=== PATIENT | female | born 1995 | race Caucasian/White ===

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

== ENCOUNTER 2017-04-12 12:45 | Emergency (ER) | payer OTHER ==
[~2017-04-12] VITALS: Ht 160 cm; Wt 62.7 kg
[2017-04-12 13:10] VITALS: TEMP 37.2; Ht 160 cm; Wt 62.7 kg
[2017-04-12] MEDS ORDERED: LEVOTAB3 PO (13:45)
--- NOTE | 2017-04-12 14:15 | EMERGENCY ROOM VISIT NOTE ---
History First contact with patient: 13:28 Chief Complaint: NEEDLE STICK Stated Complaint: STUCK WITH DIRTY NEEDLE AT WORK History of Present Illness The patient is a 21 year old female who presents to the Emergency Room via private vehicle with complaints of "stuck with a dirty needle at work". 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 She states that there was immediate bleeding and it filled her glove. She then immediately cleansed the wound with soap and water. Her tetanus is up- to-date. She presents to us for evaluation of her injury. Review of Systems A complete 6-point Review of Systems was discussed with the patient, with pertinent positives and negatives listed in the History of Present Illness. All remaining Review of Systems questions can be considered negative unless otherwise specified. Past Medical/Surgical History Medical Problems: (1) asthma with exertion (2) History of kidney stones (3) Syncope Family History Diabetes mellitus Kidney disease Kidney stones Seizures Social History Smoking Status: Current Some Day Smoker Alcohol Use: none Drug Use: none Marital Status: single Housing Status: lives with family Occupation Status: student Current/Historical Medications Scheduled Fluoxetine (Prozac), 20 MG PO QPM Levonorgestrel-Ethinyl Estradi (Jolessa), 1 TAB PO DAILY Physical Exam Vital Signs Date Time Temp Pulse Resp B/P (MAP) Pulse Ox O2 Delivery O2 Flow Rate FiO2 04/12/17 14:16 71 16 129/81 98 04/12/17 13:10 37.2 77 16 133/85 96 Room Air Physical Exam VITAL SIGNS - Vital signs and nursing notes were reviewed. Stable. GENERAL - 21-year-old female appearing her stated age who is in no acute distress. Communicates well with provider and answers questions appropriately. SKIN - Without rashes. No lacerations EXTREMITIES - No clubbing or peripheral cyanosis.FROM of L hand. No bleeding. +5 /5 strength noted in UE/LE bilaterally. PSYCH - A&O, and cooperates fully with examiner. Pt is very pleasant and interacts well with examiner. Medical Decision & Procedures Medical Decision Patient was seen and evaluated as above. She presents to us today status post needle stick injury at the [facility]. She was giving an injection when she actually struck herself upon withdrawing the needle from the patient's left arm. I would declare this as a significant needle stick injury. The patient was 89 years old. She cleaned the wound and presented here. I then contacted . Shanikacarrie Cm, employee health. I did draw baseline labs. Benefits versus risk of initiating prophylaxis against HIV was discussed, and the decision was made to refrain at this time given the low risk of the source patient. I was informed by . Shanika Cm that the patient is to follow with occupational health at the building in front of the hospital at [address] as they can help arrange source patient testing. The patient appears stable for outpatient management. She is to go directly to [address]. They were educated upon management him a educated upon worrisome symptoms in which to return, had questions about discharge, and was discharged home in good condition. Ms. Shanika Cm informed me that she would order the testing after I ordered the ED employee health labs. In evaluation treatment this patient following differential diagnoses were entertained: Laceration, needlestick injury, among others. Impression Primary Impression: Needle stick injury Departure Information Dispostion Home / Self-Care Condition GOOD Referrals Laine Santana, C.R.N.P (PCP) Patient Instructions My [facility] Additional Instructions You were seen in the emergency Department for needle stick injury of your hand. I do recommend follow-up with occupational health, [address] at the building outfront of the hospital. Please go there directly upon leaving here. Please keep the hand clean. Please follow-up with occupational health for the results of your testing. Please return with any new/concerning symptoms. Thank you.
[2017-04-12 14:16] VITALS: BP 129/81; PULSE 71; O2SAT 98
== END 2017-04-12 14:16 | disposition home or self-care (01) ==
LOC: C.EDB 12:46 → C.EDD 14:16
DX: S61.432A Puncture wound without foreign body of left hand, initial encounter (principal); W46.1XXA Contact with contaminated hypodermic needle, initial encounter; J45.990 Exercise induced bronchospasm; Z79.3 Long term (current) use of hormonal contraceptives; Z83.3 Family history of diabetes mellitus; Z84.1 Family history of disorders of kidney and ureter; Z82.0 Family history of epilepsy and other diseases of the nervous system

== ENCOUNTER 2019-06-22 14:07 | Inpatient (IN) ==
[2019-06-22] MEDS ORDERED: OXYTOCIN 30 UNITS/500 ML BAG IV PRN ×2 (14:40)
--- NOTE | 2019-06-22 14:58 | History & Physical Report ---
Date of Service June 22, 2019 Assessment & Plan (1) Gestational hypertension: (2) 37 weeks gestation of : admit, iv, labs. reviewed with pt given last wks bp and today rec induction for gest htn. she agrees. will plan pitocin and hart. fhts categ 1. History of Present Illness Chief Complaint: sent from office with elevated bp Primary Care Provider: NO PCP 24yo at 37 22/7wks ega with EDC of 07/11/19 presents to L&D with elevated bp from office. Patient was seen last week by me due to concern for MARRUFO and was having elevated bps measured at her work. Her bp was elevated and sent for evaluation to L&D and bps normalized and was sent home. Followup on wednesday and her bps were normal. Today was planned followup but unfortunately bps elevated again and sent here. Patient noting some visual change. No marrufo, no ruq or epig pain. She notes no worsening swelling but persistent swelling. BPs taken after sitting here for at least 5min and >140/90. Allergies Allergy/AdvReac Type Severity Reaction Status Date / Time No Known Drug Allergies Allergy Unknown Verified 06/22/19 12:58 Home Medications Home Medications Medication Instructions Recorded Confirmed Type calcium carbonate [Tums] 200 mg PO TID 04/17/19 06/22/19 History famotidine 10 mg PO DAILY 04/17/19 06/22/19 History vit no.[id number] 1 tab PO DAILY 06/22/19 06/22/19 History [ Vitamin] Patient History Medical History (Updated 06/22/19 @ 14:57 by Caty Lombardi MD, FACOG) Encounter for annual routine gynecological examination (Inactive) Exertional asthma (Inactive 03/13/12) History of kidney stones (Resolved) Neutropenia (Inactive) Thrombocytopenia (Inactive) UTI (urinary tract infection) (Resolved) Varicella vaccine Surgical History No pertinent past surgical history Social History Preferred Language: Icelandic Communication Ability: Effective Beliefs That Will Affect Care: None marital status: Single marital status details: Geraldinethiago Curriegle (25) [phone] Current Living Situation: Significant Other Current Living Situation Comment: dog current occupational status: employed current occupation: ELEMENTARY SCHOOL TEACHER @ [employer] Other Information That Helps Us Care for You: No Feels Safe at Home: Yes Smoking Status: Never smoker Second Hand Exposure: No ; Hx Alcohol Use: No Hx Substance Use: No Review of Systems + problem reported no abdominal pain and no change in stools no dysuria no headache(s) Physical Exam Constitutional: WD/WN, vitals as above Respiratory: normal respiratory effort, lungs clear to auscultation Cardiovascular: Rate/Rhythm: regular rate and regular rhythm Gastrointestinal (Abdomen): Percussion/Palpation: abdomen soft (gravid); abdomen nontender Musculoskeletal: +1 edema Neurologic: DTRs +2, no clonus Psychiatric: A+Ox3, euthymic affect Genitourinary: OB Exam Abdomen: + estimated weight (7#) Manual OB Exam: + cervical dilation (2), + cervical effacement 50% and + station -2 OB Exam Monitor Tracing: + external FHT monitor used (140 mod variability), + external uterine monitor used (irreg), + category I and + normal FHT variability Results & Data Vital Signs (Past 12 Hours) Vital Signs Pulse BP 06/22/19 14:26 108 H 147/97 H 06/22/19 14:20 114 H 149/94 H 06/22/19 14:14 121 H 156/99 H Coding Level of Care Code None Diagnoses Gestational hypertension O13.9 37 weeks gestation of Z3A.37
[2019-06-22 15:09] LABS: Hematocrit (blood only) 36.3 % (37-47); Hemoglobin 11.8 g/dL (12.0-16.0); Mean Corpuscular Hemoglobin 28.2 pg (25-34); Mean Corpuscular Volume 86.8 fL (80-100); Mean Platelet Volume 10.6 fL (7.4-10.4); Nucleated RBC # (auto) 0.02 K/uL (0-0); Nucleated RBC % (auto) 0.2 %; Platelet Count 259 K/uL (130-400); RDW Standard Deviation 44.5 fL (36.4-46.3); Red Blood Count 4.18 M/uL (4.2-5.4); White Blood Count 11.28 K/uL (4.8-10.8)
[2019-06-22 15:12] LABS: Mean Corpuscular Hgb Conc 32.5 g/dL (32-36)
[2019-06-22 15:25] LABS: Albumin Level 2.6 gm/dl (3.4-5.0); BUN Creatinine Ratio 9.6 (10-20); Calcium 8.7 mg/dl (8.5-10.1); Creatinine Clr Calc Pharmacy 96.2 ml/min; Est GFR (African American) 93.7; Est GFR (Non-African American) 80.9; Potassium 3.9 mmol/L (3.5-5.1)
[2019-06-22 15:27] LABS: INR 0.9 (0.9-1.1); Partial Thromboplastin Ratio 0.9; Partial Thromboplastin Time 25.6 Seconds (21.0-31.0); Prothrombin Time 9.8 Seconds (9.0-12.0)
[2019-06-22 15:28] LABS: Albumin Globulin Ratio 0.6 (0.9-2); Bilirubin,Total 0.2 mg/dl (0.2-1); Globulin 4.7 gm/dl (2.5-4.0); Total Protein 7.3 gm/dl (6.4-8.2)
[2019-06-22] MEDS: LACTATED RINGER'S 1,000 ML IV PRN ×3 (15:29→21:37)
--- NOTE | 2019-06-22 16:14 | Labor Progress Brief Note ---
Date of Service June 22, 2019 Subjective Reason For Note: Other (procedure) plan hart balloon. pt agreeable Assessment & Plan (1) 37 weeks gestation of : (2) Gestational hypertension: (3) Unfavorable cervix in term : hart ripening balloon placed. pt felisa well. c/w pit for planned induction for gest htn. gbs neg. labs reviewed that are avail. Physical Exam Constitutional: WD/WN, vitals as above Genitourinary: OB Exam Monitor Tracing: + external FHT monitor used (140 mod variability), + external uterine monitor used (irrit, pit at 1), + category I and + normal FHT variability PROCEDURE: spec placed. cx grasped on ant lip with ring forcep. hart placed through cx and inflated with 40cc water. spec removed. hart taped to leg. pt felisa well. Results & Data Vital Signs (Past 12 Hours) Vital Signs Temp Pulse Resp BP 06/22/19 15:46 87 135/93 06/22/19 15:05 99.1 F 18 06/22/19 14:26 108 H 147/97 H 06/22/19 14:20 114 H 149/94 H 06/22/19 14:14 121 H 156/99 H Coding Level of Care Code None Diagnoses 37 weeks gestation of Z3A.37 Gestational hypertension O13.9 Unfavorable cervix in term O34.40
[2019-06-22] MEDS ORDERED: ePHEDrine sulfate 50 MG/ML AMP ONE (16:39)
[2019-06-22] MEDS ORDERED: BUPIVACAINE 0.25% 30 ML VIAL ONE (16:39)
[2019-06-22] MEDS ORDERED: fentaNYL citrate 100 MCG/2 ML VIAL ONE (16:40)
[2019-06-22] MEDS ORDERED: fentaNYL 2MCG/ML ROPIV 1.25MG/ML 100 ML BAG EPI ONE (16:40)
--- NOTE | 2019-06-22 17:05 | Anesthesiology Consultation ---
Date of Service June 22, 2019 Assessment & Plan (1) Encounter for pre-operative examination: Chart Review Chart Review: Patient NOT seen in Pre Admission Testing, Acceptable Risk for Labor Epidural and entry level project engineer initiated Consults Requested none ASA ASA2 Proposed Anesthesia Anesthesia Type: Labor Epidural Risk / Benefits Reviewed With: PT / POA / Parent / Guardian, Accepts Plan and Informed Consent Obtained History Height/Weight Height: 5 ft 4 in Weight: 88.904 kg Allergies Allergy/AdvReac Type Severity Reaction Status Date / Time No Known Drug Allergies Allergy Unknown Verified 06/22/19 12:58 Medications Home Medications Medication Instructions Recorded Confirmed Last Taken calcium carbonate [Tums] 200 mg PO TID 04/17/19 06/22/19 06/21/19 20:00 famotidine 10 mg PO DAILY 04/17/19 06/22/19 06/21/19 20:00 vit no.[id number] 1 tab PO DAILY 06/22/19 06/22/19 06/22/19 09:30 [ Vitamin] Active Medications Generic Name Dose Route Start Last Admin Trade Name Freq PRN Reason Stop Dose Admin Lactated Ringer's 1,000 mls @ 125 mls/hr 06/22/19 14:40 06/22/19 16:30 Lr IV 06/24/19 14:39 999 mls/hr .Q8H PRN Infusion L&D Protocol Protocol Oxytocin 30 units in 500 mls @ 1 mls/hr 06/22/19 14:40 06/22/19 15:32 Pitocin IV 06/24/19 14:39 0.06 units/hr .Q24H PRN 1 mls/hr Labor Induction/Augmentation Administration Protocol 0.06 UNITS/HR NPO Date Last Intake of Fluids: 06/22/19 Time Last Intake of Fluids: 17:03 Date Last Intake of Solids: 06/22/19 Time Last Intake of Solids: 11:30 Past Medical History Medical History Encounter for annual routine gynecological examination (Inactive) Exertional asthma (Inactive 03/13/12) History of kidney stones (Resolved) Neutropenia (Inactive) Thrombocytopenia (Inactive) UTI (urinary tract infection) (Resolved) Varicella vaccine Exercise / Class Metabolic Activity II 4-5 Yardwork/Stairs/Walk up hill Past Family History Family History Grandmother (Maternal) Diabetes Hypertension Grandfather (Maternal) Hypertension Mother Depression Other No pertinent family history Past Surgical History Surgical History No pertinent past surgical history Past Anesthesia History No Family Hx of Anesthesia Complications History of PONV No Hx of Motion Sickness Social History Smoking Status: Never smoker Hx Alcohol Use: No Hx Substance Use: No Review of Systems Patient denies history of abnormal bleeding or bleeding disorder. Patient denies active use of anticoagulants other than low dose aspirin. Patient denies numbness, tingling or weakness in lower extremities. Negative for chest pain or shortness of breath. Physical Exam Vital Signs Last Vital Signs Temp 37.3 C 06/22/19 15:05 Pulse 83 06/22/19 16:38 Resp 18 06/22/19 15:05 BP 134/92 06/22/19 16:38 Constitutional not obese (Gravid uterus) ENMT Mouth: no TMJ abnormality and oral opening not small Thyromental Distance: > or= 3.5 Finger Breadths Mallampati Class: I Neck normal visual inspection; neck extension not limited Respiratory normal respiratory effort Auscultation: lungs clear to auscultation bilaterally Cardiovascular Rate/Rhythm: regular rate and regular rhythm Heart Sounds: no murmur Neurologic moves all extremities Motor/Sensory: no sensory deficit Psychiatric Orientation: alert and oriented x 3 Testing Laboratory Results 06/22/19 15:00 06/22/19 15:00 PT 9.8 Seconds (9.0-12.0) 06/22/19 15:00 INR 0.9 (0.9-1.1) 06/22/19 15:00 APTT 25.6 Seconds (21.0-31.0) 06/22/19 15:00
[2019-06-22] MEDS ORDERED: ONDANSETRON INJ 2 MG/ML 2 ML VIAL IV PRN (17:35)
[2019-06-22] MEDS ORDERED: DiphenhydrAMINE HCL 50 MG/ML VIAL IV PRN (17:35)
[2019-06-22] MEDS ORDERED: fentaNYL 2MCG/ML ROPIV 1.25MG/ML 100 ML BAG EPI PRN (17:35)
[2019-06-22] MEDS ORDERED: NALOXONE HCL 0.4 MG/1 ML VIAL/CARP IV PRN (17:35)
[2019-06-22] MEDS ORDERED: NALBUPHINE HCL INJ 10 MG/ML AMP IV PRN (17:35)
[2019-06-22] MEDS ORDERED: ePHEDrine sulfate 50 MG/ML AMP IV PRN (17:35)
[2019-06-22] MEDS ORDERED: NALOXONE HCL 1 MG in SODIUM CHLORIDE 0.9% 1000ML 1,000 ML IV PRN (17:35)
--- NOTE | 2019-06-22 20:22 | Labor Progress Brief Note ---
Date of Service June 22, 2019 Subjective Reason For Note: Routine Evaluation notified by nursing that pit earlier turned off and now back on at 3. pt comfortable. Assessment & Plan (1) 37 weeks gestation of : (2) Gestational hypertension: will see how iupc traces and mvu's. this will help adjust the pitocin, pt agreeable. device placed. fhts categ 2. monitor closely. Physical Exam Constitutional: WD/WN, vitals as above Genitourinary: Manual OB Exam: + cervical dilation 4 cm, + cervical effacement 80%, + station -2 and + amniotic fluid (arom) clear OB Exam Monitor Tracing: + external FHT monitor used (150 mod variability, variable decels), + external uterine monitor used (q2), + category II, + normal FHT variability and + variable decelerations Results & Data Vital Signs (Past 12 Hours) Vital Signs Temp Pulse Resp BP Pulse Ox 06/22/19 20:14 94 H 99 06/22/19 20:09 102 H 100 06/22/19 20:04 89 100 06/22/19 19:59 100 H 100 06/22/19 19:54 91 H 99 06/22/19 19:53 94 H 127/77 06/22/19 19:49 90 99 06/22/19 19:44 83 99 06/22/19 19:39 88 99 06/22/19 19:34 84 100 06/22/19 19:30 18 06/22/19 19:29 80 100 06/22/19 19:24 88 100 06/22/19 19:22 81 119/86 06/22/19 19:19 93 H 100 06/22/19 19:17 98.8 F 18 06/22/19 19:14 96 H 96 06/22/19 19:09 97 H 100 06/22/19 19:04 77 100 06/22/19 18:59 84 100 06/22/19 18:54 85 128/79 99 06/22/19 18:49 84 100 06/22/19 18:44 93 H 100 06/22/19 18:39 82 145/67 H 99 06/22/19 18:34 78 100 06/22/19 18:29 81 130/78 100 06/22/19 18:24 83 100 06/22/19 18:19 78 136/86 100 06/22/19 18:14 81 100 06/22/19 18:09 80 136/88 100 06/22/19 18:04 93 H 100 06/22/19 17:59 84 125/83 100 06/22/19 17:54 79 100 06/22/19 17:49 89 100 06/22/19 17:48 94 H 123/81 06/22/19 17:46 80 121/77 06/22/19 17:45 18 06/22/19 17:44 86 124/79 100 06/22/19 17:42 78 121/78 06/22/19 17:40 86 125/75 88 L 06/22/19 17:39 89 99 06/22/19 17:38 83 128/76 06/22/19 17:36 90 129/74 06/22/19 17:34 80 126/75 100 06/22/19 17:32 87 125/69 06/22/19 17:30 90 132/73 06/22/19 17:29 91 H 100 06/22/19 17:28 101 H 130/71 89 L 06/22/19 17:26 93 H 126/68 06/22/19 17:24 78 126/78 98 06/22/19 17:22 70 118/72 06/22/19 17:19 83 100 06/22/19 17:14 86 100 06/22/19 17:09 96 H 100 06/22/19 16:38 83 134/92 06/22/19 15:46 87 135/93 06/22/19 15:05 99.1 F 18 06/22/19 14:26 108 H 147/97 H 06/22/19 14:20 114 H 149/94 H 06/22/19 14:14 121 H 156/99 H Coding Level of Care Code None Diagnoses 37 weeks gestation of Z3A.37 Gestational hypertension O13.9
[2019-06-22 21:28] LABS: Protein Creatinine Ratio Urine 0.1 (0-0.2); Total Protein Urine Random 17.5 mg/dl (0-11.9)
--- NOTE | 2019-06-22 22:49 | Labor Progress Brief Note ---
Date of Service June 22, 2019 Subjective Reason For Note: Other (strip review) Assessment & Plan (1) 37 weeks gestation of : (2) Gestational hypertension: now with pitocin off fhts are improved, categ 1. mvu's intermittently adequate. will watch mvu's to see if need to add pitocin but also recent arom, so can see how ctx pattern improves from here. this is now a spont ctx pattern. Physical Exam Genitourinary: OB Exam Monitor Tracing: + external FHT monitor used (140 mod variability ), + intra-uterine pressure catheter used (q1-3 min ctx, mvus are intermittently adequate), + category I and + normal FHT variability Results & Data Vital Signs (Past 12 Hours) Vital Signs Temp Pulse Resp BP Pulse Ox 06/22/19 22:40 80 117/73 06/22/19 22:39 81 98 06/22/19 22:34 80 98 06/22/19 22:29 82 98 06/22/19 22:26 81 117/70 06/22/19 22:24 84 98 06/22/19 22:19 95 H 100 06/22/19 22:14 83 100 06/22/19 22:10 83 119/74 06/22/19 22:09 85 100 06/22/19 22:04 88 100 06/22/19 22:00 18 06/22/19 21:59 90 99 06/22/19 21:55 86 118/72 06/22/19 21:54 99 06/22/19 21:49 93 H 100 06/22/19 21:44 93 H 99 06/22/19 21:41 97 H 130/62 06/22/19 21:39 97 H 99 06/22/19 21:34 94 H 98 06/22/19 21:30 18 06/22/19 21:29 96 H 99 06/22/19 21:26 95 H 139/89 06/22/19 21:24 93 H 98 06/22/19 21:19 95 H 100 06/22/19 21:14 97 H 100 06/22/19 21:11 91 H 131/86 06/22/19 21:09 110 H 99 06/22/19 21:04 103 H 100 06/22/19 21:00 18 06/22/19 20:59 93 H 100 06/22/19 20:56 104 H 130/87 06/22/19 20:54 101 H 100 06/22/19 20:49 102 H 100 06/22/19 20:44 99 H 99 06/22/19 20:40 81 117/62 06/22/19 20:39 81 100 06/22/19 20:34 89 100 06/22/19 20:30 18 06/22/19 20:29 98 H 100 06/22/19 20:25 82 103/55 L 06/22/19 20:24 87 99 06/22/19 20:23 95 H 86 L 06/22/19 20:19 93 H 99 06/22/19 20:15 98.8 F 18 06/22/19 20:14 94 H 99 06/22/19 20:09 102 H 100 06/22/19 20:04 89 100 06/22/19 20:00 18 06/22/19 19:59 100 H 100 06/22/19 19:54 91 H 99 06/22/19 19:53 94 H 127/77 06/22/19 19:49 90 99 06/22/19 19:44 83 99 06/22/19 19:39 88 99 06/22/19 19:34 84 100 06/22/19 19:30 18 06/22/19 19:29 80 100 06/22/19 19:24 88 100 06/22/19 19:22 81 119/86 06/22/19 19:19 93 H 100 06/22/19 19:17 98.8 F 18 06/22/19 19:14 96 H 96 06/22/19 19:09 97 H 100 06/22/19 19:04 77 100 06/22/19 18:59 84 100 06/22/19 18:54 85 128/79 99 06/22/19 18:49 84 100 06/22/19 18:44 93 H 100 06/22/19 18:39 82 145/67 H 99 06/22/19 18:34 78 100 06/22/19 18:29 81 130/78 100 06/22/19 18:24 83 100 06/22/19 18:19 78 136/86 100 06/22/19 18:14 81 100 06/22/19 18:09 80 136/88 100 06/22/19 18:04 93 H 100 06/22/19 17:59 84 125/83 100 06/22/19 17:54 79 100 06/22/19 17:49 89 100 06/22/19 17:48 94 H 123/81 06/22/19 17:46 80 121/77 06/22/19 17:45 18 06/22/19 17:44 86 124/79 100 06/22/19 17:42 78 121/78 06/22/19 17:40 86 125/75 88 L 06/22/19 17:39 89 99 06/22/19 17:38 83 128/76 06/22/19 17:36 90 129/74 06/22/19 17:34 80 126/75 100 06/22/19 17:32 87 125/69 06/22/19 17:30 90 132/73 06/22/19 17:29 91 H 100 06/22/19 17:28 101 H 130/71 89 L 06/22/19 17:26 93 H 126/68 06/22/19 17:24 78 126/78 98 06/22/19 17:22 70 118/72 06/22/19 17:19 83 100 06/22/19 17:14 86 100 06/22/19 17:09 96 H 100 06/22/19 16:38 83 134/92 06/22/19 15:46 87 135/93 06/22/19 15:05 99.1 F 18 06/22/19 14:26 108 H 147/97 H 06/22/19 14:20 114 H 149/94 H 06/22/19 14:14 121 H 156/99 H Coding Level of Care Code None Diagnoses 37 weeks gestation of Z3A.37 Gestational hypertension O13.9
[2019-06-23] MEDS ORDERED: Nursing to Pharmacy Communication ONE (03:26)
--- NOTE | 2019-06-23 03:47 | Labor Progress Brief Note ---
Date of Service June 23, 2019 Subjective pt with rectal pressure Assessment & Plan (1) 37 weeks gestation of : (2) Gestational hypertension: will see if pt can become more comfortable as still with anterior lip, anticip 2nd stage soon. Physical Exam Constitutional: WD/WN, vitals as above Genitourinary: Manual OB Exam: + cervical dilation (ant lip), + cervical effacement 100% and + station + 3 OB Exam Monitor Tracing: + external FHT monitor used (160 mod variability, reactive), + intra-uterine pressure catheter used (q2), + category I and + normal FHT variability Results & Data Vital Signs (Past 12 Hours) Vital Signs Temp Pulse Resp BP Pulse Ox 06/23/19 03:44 99 H 99 06/23/19 03:42 138/97 06/23/19 03:39 102 H 100 06/23/19 03:34 129 H 99 06/23/19 03:29 82 98 06/23/19 03:25 85 143/89 H 06/23/19 03:24 91 H 99 06/23/19 03:19 100 H 100 06/23/19 03:14 110 H 100 06/23/19 03:09 120 H 95 06/23/19 03:04 87 97 06/23/19 02:59 83 97 06/23/19 02:55 83 144/76 H 06/23/19 02:54 94 H 100 06/23/19 02:49 81 99 06/23/19 02:44 98 H 100 06/23/19 02:42 93 H 154/63 H 06/23/19 02:39 109 H 100 06/23/19 02:34 109 H 99 06/23/19 02:30 98.1 F 18 06/23/19 02:29 81 98 06/23/19 02:26 81 140/75 06/23/19 02:24 81 100 06/23/19 02:19 79 100 06/23/19 02:14 101 H 100 06/23/19 02:09 85 99 06/23/19 02:04 91 H 100 06/23/19 02:00 16 06/23/19 01:59 101 H 100 06/23/19 01:56 87 118/72 06/23/19 01:54 84 100 06/23/19 01:49 85 99 06/23/19 01:44 95 H 100 06/23/19 01:41 85 129/75 06/23/19 01:39 91 H 100 06/23/19 01:34 85 100 06/23/19 01:30 18 06/23/19 01:29 89 100 06/23/19 01:26 93 H 124/80 06/23/19 01:24 82 100 06/23/19 01:19 112 H 99 06/23/19 01:14 99 H 99 06/23/19 01:10 92 H 139/69 06/23/19 01:09 94 H 100 06/23/19 01:04 89 100 06/23/19 01:00 18 06/23/19 00:59 96 H 100 06/23/19 00:56 100 H 131/78 06/23/19 00:54 101 H 100 06/23/19 00:49 101 H 99 06/23/19 00:44 115 H 100 06/23/19 00:39 121 H 96 06/23/19 00:34 119 H 100 06/23/19 00:30 97.5 F L 18 06/23/19 00:29 108 H 100 06/23/19 00:26 85 110/56 L 06/23/19 00:24 95 H 100 06/23/19 00:19 112 H 100 06/23/19 00:14 111 H 100 06/23/19 00:09 102 H 100 06/23/19 00:04 82 98 06/23/19 00:00 18 06/22/19 23:59 86 98 06/22/19 23:56 80 120/69 06/22/19 23:54 90 100 06/22/19 23:49 80 98 06/22/19 23:44 78 99 06/22/19 23:40 80 123/73 06/22/19 23:39 79 98 06/22/19 23:34 75 98 06/22/19 23:30 18 06/22/19 23:29 77 98 06/22/19 23:26 74 120/68 06/22/19 23:24 77 99 06/22/19 23:19 85 100 06/22/19 23:14 87 99 06/22/19 23:11 91 H 127/66 06/22/19 23:09 90 98 06/22/19 23:04 79 98 04/09/20 23:00 18 06/22/19 22:59 87 99 06/22/19 22:56 85 135/78 06/22/19 22:54 92 H 98 06/22/19 22:49 91 H 100 06/22/19 22:44 107 H 100 06/22/19 22:40 80 117/73 06/22/19 22:39 81 98 06/22/19 22:34 80 98 06/22/19 22:30 99.0 F 18 06/22/19 22:29 82 98 06/22/19 22:26 81 117/70 06/22/19 22:24 84 98 06/22/19 22:19 95 H 100 06/22/19 22:14 83 100 06/22/19 22:10 83 119/74 06/22/19 22:09 85 100 06/22/19 22:04 88 100 06/22/19 22:00 18 06/22/19 21:59 90 99 06/22/19 21:55 86 118/72 06/22/19 21:54 99 06/22/19 21:49 93 H 100 06/22/19 21:44 93 H 99 06/22/19 21:41 97 H 130/62 06/22/19 21:39 97 H 99 06/22/19 21:34 94 H 98 06/22/19 21:30 18 06/22/19 21:29 96 H 99 06/22/19 21:26 95 H 139/89 06/22/19 21:24 93 H 98 06/22/19 21:19 95 H 100 06/22/19 21:14 97 H 100 06/22/19 21:11 91 H 131/86 06/22/19 21:09 110 H 99 06/22/19 21:04 103 H 100 06/22/19 21:00 18 06/22/19 20:59 93 H 100 06/22/19 20:56 104 H 130/87 06/22/19 20:54 101 H 100 06/22/19 20:49 102 H 100 06/22/19 20:44 99 H 99 06/22/19 20:40 81 117/62 06/22/19 20:39 81 100 06/22/19 20:34 89 100 06/22/19 20:30 18 06/22/19 20:29 98 H 100 06/22/19 20:25 82 103/55 L 06/22/19 20:24 87 99 06/22/19 20:23 95 H 86 L 06/22/19 20:19 93 H 99 06/22/19 20:15 98.8 F 18 06/22/19 20:14 94 H 99 06/22/19 20:09 102 H 100 06/22/19 20:04 89 100 06/22/19 20:00 18 06/22/19 19:59 100 H 100 06/22/19 19:54 91 H 99 06/22/19 19:53 94 H 127/77 06/22/19 19:49 90 99 06/22/19 19:44 83 99 06/22/19 19:39 88 99 06/22/19 19:34 84 100 06/22/19 19:30 18 06/22/19 19:29 80 100 06/22/19 19:24 88 100 06/22/19 19:22 81 119/86 06/22/19 19:19 93 H 100 06/22/19 19:17 98.8 F 18 06/22/19 19:14 96 H 96 06/22/19 19:09 97 H 100 06/22/19 19:04 77 100 06/22/19 18:59 84 100 06/22/19 18:54 85 128/79 99 06/22/19 18:49 84 100 06/22/19 18:44 93 H 100 06/22/19 18:39 82 145/67 H 99 06/22/19 18:34 78 100 06/22/19 18:29 81 130/78 100 06/22/19 18:24 83 100 06/22/19 18:19 78 136/86 100 06/22/19 18:14 81 100 06/22/19 18:09 80 136/88 100 06/22/19 18:04 93 H 100 06/22/19 17:59 84 125/83 100 06/22/19 17:54 79 100 06/22/19 17:49 89 100 06/22/19 17:48 94 H 123/81 06/22/19 17:46 80 121/77 06/22/19 17:45 18 06/22/19 17:44 86 124/79 100 04/09/20 17:42 78 121/78 06/22/19 17:40 86 125/75 88 L 06/22/19 17:39 89 99 06/22/19 17:38 83 128/76 06/22/19 17:36 90 129/74 06/22/19 17:34 80 126/75 100 06/22/19 17:32 87 125/69 06/22/19 17:30 90 132/73 06/22/19 17:29 91 H 100 06/22/19 17:28 101 H 130/71 89 L 06/22/19 17:26 93 H 126/68 06/22/19 17:24 78 126/78 98 06/22/19 17:22 70 118/72 06/22/19 17:19 83 100 06/22/19 17:14 86 100 06/22/19 17:09 96 H 100 06/22/19 16:38 83 134/92 06/22/19 15:46 87 135/93 Coding Level of Care Code None Diagnoses 37 weeks gestation of Z3A.37 Gestational hypertension O13.9
[2019-06-23] MEDS ORDERED: BENZOCAINE 20% AER SPR 82.5 GM CAN EXT PRN (05:40)
[2019-06-23] MEDS ORDERED: OXYCODONE/ACETAMINOPHEN 5mg/325mg TAB PO PRN (05:40)
[2019-06-23] MEDS ORDERED: DIPHTHERIA/TETANUS/PERTUSSIS 0.5 ML SYR/VIAL IM ONE (05:40)
[2019-06-23] MEDS ORDERED: HYDROCORTISONE ACETATE 25 MG SUPP PR PRN (05:40)
[2019-06-23] MEDS ORDERED: OXYTOCIN 30 UNITS/500 ML BAG IV PRN (05:40)
[2019-06-23] MEDS ORDERED: SUPERCREAM 0.870% 15 GM JAR EXT PRN (05:40)
[2019-06-23] MEDS ORDERED: ACETAMINOPHEN 325 MG TAB PO PRN (05:40)
--- NOTE | 2019-06-23 05:43 | Delivery Summary ---
Vaginal Delivery Summary Date of Service June 23, 2019 The patient dilated to complete and pushed to deliver a viable male infant Apgars 6 and 8 via over small 2nd degree perineal laceration. Mouth and nose bulb suctioned at perineum. Shoulders and body delivered with ease. was vigorous and crying at . Cord clamped at 30 seconds of life and to maternal abdomen where the cord was then doubly clamped and cut. Placenta delivered spontaneously and intact, three-vessel cord. Hemostasis achieved with dilute pitocin and uterine massage and drainage of the bladder for approximately 100 cc under sterile conditions. Cervix and sulci intact. EBL 300 cc. Mother and baby stable recovery. [facility] Vaginal Delivery Charge Vaginal Delivery Codes: 27964 global code for the antepartum, delivery, and post-
[2019-06-23] MEDS ORDERED: OXYTOCIN 20 UNITS in LACTATED RINGER'S 1,000 ML IV SCH (05:45)
--- NOTE | 2019-06-23 06:57 | Anesthesia Procedure Note ---
Date of Service June 23, 2019 Anesthesia Post Epidural Note Vital Signs Vital Signs: Temp Pulse Resp BP Pulse Ox 37.9 C H 117 H 18 131/70 97 06/23/19 05:15 06/23/19 06:46 06/23/19 05:15 06/23/19 06:46 06/23/19 05:24 Notes Mental Status: alert / awake / arousable and participated in evaluation Nausea / Vomiting: adequately controlled Pain: adequately controlled Airway Patency, RR, SpO2: stable & adequate BP & HR: stable & adequate Hydration State: stable & adequate Neuraxial Anesthesia: was administered and sensory block is resolving Anesthetic Complications: no major complications apparent and Pt Satisfied with anesthetic care Epidural: Removed without complications and With tip intact Notes: Epidural site clean, dry and intact. No signs of edema, erythema or bruising at insertion site. Pt instructed to request anesthesia if she has residual lower extremity numbness or if she develops lower extremity pain or weakness, back pain or headache.
[2019-06-23] MEDS: IBUPROFEN 600 MG TAB PO PRN ×3 (07:09→23:25)
[2019-06-23] MEDS: DOCUSATE SODIUM 100 MG CAP PO SCH ×2 (08:24→20:19)
[2019-06-23] MEDS: PRENATAL VITAMIN 1 TAB PO SCH (08:24)
[2019-06-23] MEDS: FAMOTIDINE 10 MG TABLET PO SCH (08:24)
[2019-06-23] MEDS: FLUOXETINE HCL 10 MG CAP PO SCH (11:53)
[2019-06-23] MEDS: buPROPion HCl 75 MG TABLET PO SCH ×2 (11:53→20:19)
[2019-06-24] MEDS: IBUPROFEN 600 MG TAB PO PRN (08:14)
[2019-06-24] MEDS: PRENATAL VITAMIN 1 TAB PO SCH (08:14)
[2019-06-24] MEDS: DOCUSATE SODIUM 100 MG CAP PO SCH (08:14)
--- NOTE | 2019-06-24 08:20 | Obstetrical Progress Note ---
Date of Service June 24, 2019 Assessment & Plan (1) Supervision of normal intrauterine in primigravida: PPD#1 doing well, no concerns. Continue routine care. Subjective Ambulation: ambulating normally Voiding: no voiding problems Diet Tolerance:: regular diet Lochia:: Moderate Feeding Type:: bottle feeding PPD#1 doing well Review of Systems All systems reviewed & are unremarkable except as noted in HPI & below Physical Exam Constitutional WD/WN, vitals as above no acute distress Respiratory normal respiratory effort Cardiovascular Rate/Rhythm: regular rate and regular rhythm Gastrointestinal (Abdomen) Inspection/Auscultation: abdomen normal to inspection; abdomen not distended Percussion/Palpation: abdomen soft Genitourinary OB Exam Abdomen: + fundal height Fundus: + firm; not tender Results & Data Vital Signs (Past 12 Hours) Vital Signs Temp Pulse Resp BP Pulse Ox 06/24/19 04:15 36.9 C 88 14 119/74 98 06/23/19 23:15 36.5 C 80 16 134/81 99
[2019-06-24] MEDS: FLUOXETINE HCL 10 MG CAP PO SCH (08:54)
[2019-06-24] MEDS: FAMOTIDINE 10 MG TABLET PO SCH (08:54)
[2019-06-24] MEDS ORDERED: buPROPion HCl 75 MG TABLET PO SCH (09:00)
--- NOTE | 2019-06-28 09:03 | Coding Query ---
CODING QUERY To promote full compliance with coding requirements relating to patient care, provider participation is requested in all cases of ribber uncertainty. Please assist us with the question(s) below: Coding Question(s): It is noted that the patient had a small 2nd degree perineal laceration during delivery. Please indicate/describe below if any repairs were made to this. Physician's Response(s): repair was made, vag delivery note addended. Thank you Chanda Cunha Principal Diagnosis: "that condition established after study, to be chiefly responsible for occasioning the admission of the patient to the hospital for care." Co-Existing Principal Diagnosis: "when two or more diagnoses equally meet the criteria for principal diagnosis as determined by the circumstances of admission, diagnostic work up, and/or therapy provided, and the Alphabetic Index, Tabular List, or another coding guideline does not provide sequencing direction, any one of the diagnoses may be sequenced first." "When the physician has documented what appears to be a current diagnosis in the body of the record, but has not included the diagnosis in the final diagnostic statement, the physician should be asked whether the diagnosis should be added." (Source Coding [facility] 2 QTR90. p3-4) YUE
== END 2019-06-24 12:40 | disposition home or self-care (01) | DRG 807 ==
LOC: OPB 14:07 → 4S1 14:10 → 4S2 06-23 08:05

== ENCOUNTER 2022-11-07 22:11 | Inpatient (IN) ==
[2022-11-07] MEDS ORDERED: ACETAMINOPHEN 325 MG TAB PO PRN (22:37)
[2022-11-07 23:04] LABS: Basophils # (auto) 0.05 K/uL (0.00-0.20); Basophils % (auto) 0.7 %; Eosinophils # (auto) 0.03 K/uL (0.00-0.50); Eosinophils % (auto) 0.4 %; Hematocrit (blood only) 30.2 % (37.0-47.0); Hemoglobin 9.7 g/dl (12.0-16.0); Immature Granulocytes # (auto) 0.06 K/uL (0.01-0.20); Immature Granulocytes % (auto) 0.8 %; Lymphocytes # (auto) 2.72 K/uL (1.20-3.40); Lymphocytes % (auto) 35.4 %; Mean Corpuscular Hemoglobin 25.9 pg (25.0-34.0); Mean Corpuscular Hgb Conc 32.1 g/dL (32.0-36.0); Mean Corpuscular Volume 80.7 fL (80.0-100.0); Mean Platelet Volume 11.5 fL (9.4-12.4); Monocytes # (auto) 0.65 K/uL (0.11-0.59); Monocytes % (auto) 8.5 %; Neutrophils # (auto) 4.18 K/uL (1.40-6.50); Neutrophils % (auto) 54.2 %; Nucleated RBC # (auto) 0.02 K/uL (0.00-0.12); Nucleated RBC % (auto) 0.3 %; Platelet Count 239 K/uL (130-400); RDW Coefficient of Variation 14.7 % (11.5-14.5); RDW Standard Deviation 43.1 fL (36.4-46.3); Red Blood Count 3.74 M/uL (4.20-5.40); White Blood Count 7.69 K/ul (4.8-10.8)
[2022-11-07 23:23] LABS: Albumin Level 3.7 gm/dl (3.4-5.0); BUN Creatinine Ratio 14.6 (10-20); Bilirubin,Total 0.3 mg/dl (0.2-1.0); Calcium 9.4 mg/dl (8.6-10.3); Creatinine Clr Calc Pharmacy 86.9 ml/min; Est GFR (African American) 87.5 ml/min; Est GFR (Non-African American) 75.5 ml/min; Globulin 3.7 gm/dl (2.5-4.0); Potassium 3.9 mmol/L (3.5-5.1); Total Protein 7.4 gm/dl (6.0-8.3)
[2022-11-07 23:52] LABS: Total Protein Urine Random 29.1 mg/dl (0-11.9)
[2022-11-07 23:57] LABS: Creatinine Urine Random 262.9 mg/dl; Protein Creatinine Ratio Urine 0.1 (0-0.2)
[2022-11-08] MEDS ORDERED: OXYTOCIN 30 UNITS/500 ML BAG IV PRN ×3 (02:42→11:43)
[2022-11-08] MEDS ORDERED: LIDOCAINE 1% LOCAL 20 ML VIAL INFIL PRN (02:42)
[2022-11-08] MEDS: LACTATED RINGER'S 1,000 ML IV PRN ×2 (02:57→08:01)
[2022-11-08] MEDS ORDERED: BUTORPHANOL TARTRATE 1 MG/ML VIAL IV PRN (03:30)
[2022-11-08] MEDS ORDERED: ACETAMINOPHEN 325 MG TAB PO PRN ×2 (03:30→11:43)
--- NOTE | 2022-11-08 03:30 | History & Physical Report ---
Date of Service November 08, 2022 Assessment & Plan (1) 37 weeks gestation of : (2) Gestational hypertension: Plan admit, iv, will plan repeat labs about 8am. cervical ripening balloon placed and start pitocin. if persistent elevated severe range bps, will need trt and mag. pt made aware. tylenol additional prn order placed. stadol/epidural when desires. Admission and Anticipated Discharge Date Admission Date: November 08, 2022 History of Present Illness Chief Complaint: gestational hypertension Primary Care Provider: Sheri Sung PA-C 27yo at 37+wks [place] presents to L&D with light and visual floaters in background of history of gestational htn with prior , having mild ctx. She had elevated bps, taken with correct parameters x 2, by 4hr. She met criteria for gestational htn. She did have tylenol during her evaluation and it has helped some--now left sided light only, not severe. She denies visual changes currently that are changed for her usual vision. Denies rom, vb. +FM. PNC c/b 1. prior c/b gest htn PNL rh pos, ri, gbs neg OBH: svdx 1, induced for gest htn GYNH: nl paps, no stds Allergies Allergy/AdvReac Type Severity Reaction Status Date / Time No Known Drug Allergies Allergy Unknown Verified 11/06/22 11:34 Home Medications Medication Instructions Recorded Confirmed Type calcium carbonate 200 mg calcium 200 mg PO TID 04/17/19 11/07/22 History (500 mg) chewable tablet (Tums) prenat.vits,faye,[id number] 1 tab PO DAILY 04/06/22 11/07/22 History Patient History Medical History (Updated 11/08/22 @ 03:29 by Caty Lombardi MD, FACOG) Depression with anxiety Encounter for annual routine gynecological examination Exertional asthma (03/13/12) Gestational hypertension History of kidney stones Neutropenia Thrombocytopenia UTI (urinary tract infection) Varicella vaccine Surgical History No pertinent past surgical history Family History Grandmother (Maternal) Diabetes Hypertension Grandfather (Maternal) Hypertension Mother Depression Endometriosis Denies family history of Ovarian cancer Breast cancer Colorectal cancer Social History Smoking Status: Never smoker Second Hand Exposure: No; Do You Dip or Chew Tobacco: No; Hx Alcohol Use: No Hx Substance Use: No Preferred Language: Tajik Communication Ability: Effective 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 Beliefs That Will Affect Care: None marital status: marital status details: Abiodun Isaacs (29) [phone] Current Living Situation: Spouse Current Living Situation Comment: lives with spouse, son, dogs current occupational status: unemployed current occupation: homemaker Feels Safe at Home: Yes Safety Concerns: Feels Safe At This Time Assistive Devices: Contacts and Glasses Review of Systems as per Subjective / HPI Physical Exam Constitutional: WD/WN, vitals as above Respiratory: normal respiratory effort, lungs clear to auscultation Cardiovascular: Rate/Rhythm: regular rate and regular rhythm Gastrointestinal (Abdomen): soft gravid nt efwe 7# Musculoskeletal: no edema nontender calves Neurologic: DTRs +2, no clonus Psychiatric: A+Ox3, euthymic affect Genitourinary: Manual OB Exam: + cervical dilation (nursing exam /-2 post, med) 1 cm OB Exam Monitor Tracing: + external FHT monitor used, + external uterine monitor used (irreg), + category I and + normal FHT variability PROCEDURE: sse cx visualized, grasped on ant lip with ring forcep, hart through os and balloon inflated with 40cc sterile water. Spec removed, hart taped to leg. pt felisa well. Results & Data Vital Signs (Past 12 Hours) Vital Signs Temp Pulse Resp BP 11/07/22 23:05 20 11/08/22 03:15 69 125/89 11/08/22 03:00 98.4 F 82 16 127/83 11/08/22 02:41 82 158/98 H 11/08/22 02:37 90 159/111 H 11/08/22 00:07 78 140/92 11/07/22 23:52 100 H 145/95 H 11/07/22 23:41 83 135/81 11/07/22 23:31 81 132/100 11/07/22 23:21 111 H 124/94 11/07/22 23:12 93 H 137/89 08/26/23 22:50 115 H 128/77 11/07/22 22:36 106 H 145/88 H Coding Level of Care Code None Diagnoses 37 weeks gestation of Z3A.37 Gestational hypertension O13.9 CPT Codes Misx Procedure Codes - 13418 Placement of cervical dilator: 65428 Placement of cervical dilator ([id number])
[2022-11-08] MEDS ORDERED: ONDANSETRON INJ 2 MG/ML 2 ML VIAL IV STA (03:32)
[2022-11-08 07:00] LABS: Albumin Level 3.3 gm/dl (3.4-5.0); BUN Creatinine Ratio 15.1 (10-20); Bilirubin Direct 0.1 mg/dl (0-0.2); Bilirubin,Total 0.4 mg/dl (0.2-1.0); Calcium 8.8 mg/dl (8.6-10.3); Creatinine Clr Calc Pharmacy 96.3 ml/min; Est GFR (Non-African American) 85.4 ml/min; Globulin 3.2 gm/dl (2.5-4.0); Potassium 3.9 mmol/L (3.5-5.1); Total Protein 6.5 gm/dl (6.0-8.3)
[2022-11-08] MEDS ORDERED: BUPIVACAINE 0.25% PF 30 ML VIAL ONE (07:12)
[2022-11-08] MEDS ORDERED: LIDOCAINE 2%/EPINEPHRINE 1:200,000 20 ML PF ONE (07:12)
[2022-11-08] MEDS ORDERED: fentaNYL citrate PF 100 MCG/2 ML VIAL ONE (07:12)
[2022-11-08] MEDS ORDERED: SODIUM CHLORIDE 0.9% PF INJ 10 ML VIAL ONE (07:12)
[2022-11-08] MEDS ORDERED: ePHEDrine sulfate 50 MG/ML AMP ONE (07:12)
[2022-11-08] MEDS ORDERED: fentaNYL 2MCG/ML ROPIVACAINE 1.25MG/ML 100 ML BAG EPI ONE (07:13)
[2022-11-08] MEDS ORDERED: LIDOCAINE 2%/EPINEPHRINE 1:200,000 20 ML PF EPI STA (07:41)
[2022-11-08] MEDS ORDERED: BUPIVACAINE 0.25% PF 30 ML VIAL EPI PRN (07:41)
[2022-11-08] MEDS ORDERED: SODIUM CHLORIDE 0.9% PF INJ 10 ML VIAL EPI PRN (07:41)
[2022-11-08] MEDS ORDERED: NALOXONE HCL 0.4 MG/1 ML VIAL/CARP IV PRN (07:41)
[2022-11-08] MEDS ORDERED: ePHEDrine sulfate 50 MG/ML AMP IV PRN (07:41)
[2022-11-08] MEDS ORDERED: BUPIVACAINE 0.25% PF 30 ML VIAL EPI STA (07:41)
[2022-11-08] MEDS ORDERED: NALOXONE HCL 1 MG in SODIUM CHLORIDE 0.9% 1000ML 1,000 ML IV PRN (07:41)
[2022-11-08] MEDS ORDERED: LIDOCAINE 2% MPF LOCAL 5 ML VIAL EPI PRN (07:41)
[2022-11-08] MEDS ORDERED: SODIUM CHLORIDE 0.9% PF INJ 10 ML VIAL EPI STA (07:41)
[2022-11-08] MEDS ORDERED: fentaNYL citrate PF 100 MCG/2 ML VIAL EPI PRN (07:41)
[2022-11-08] MEDS ORDERED: diphenhydrAMINE 50 MG/ML VIAL IV PRN (07:41)
[2022-11-08] MEDS ORDERED: fentaNYL 2MCG/ML ROPIVACAINE 1.25MG/ML 100 ML BAG EPI PRN (07:41)
[2022-11-08] MEDS ORDERED: fentaNYL citrate PF 100 MCG/2 ML VIAL EPI STA (07:41)
[2022-11-08] MEDS ORDERED: ROPIVACAINE 0.5% PF 5 MG/ML 20 ML VIAL EPI PRN (07:41)
[2022-11-08] MEDS ORDERED: NALBUPHINE HCL INJ 10 MG/ML AMP IV PRN (07:41)
--- NOTE | 2022-11-08 07:44 | Anesthesiology Consultation ---
Date of Service November 08, 2022 History Height/Weight Height: 5 ft 5 in Weight: 79.379 kg Allergies Allergy/AdvReac Type Severity Reaction Status Date / Time No Known Drug Allergies Allergy Unknown Verified 11/06/22 11:34 Medications Home Medications Medication Instructions Recorded Confirmed Last Taken calcium carbonate 200 mg calcium 200 mg PO TID 04/17/19 11/07/22 06/21/19 20:00 (500 mg) chewable tablet (Tums) prenat.vits,faye,[id number] 1 tab PO DAILY 04/06/22 11/07/22 Unknown Active Medications Generic Name Dose Route Start Last Admin Trade Name Freq PRN Reason Stop Dose Admin Butorphanol Tartrate 1 mg 11/08/22 03:30 11/08/22 04:56 Butorphanol Tartrate 1 Mg/Ml Vial IV 12/08/22 03:29 1 mg ONCE PRN Administration Pain Lactated Ringer's 1,000 mls @ 125 mls/hr 11/08/22 02:42 11/08/22 07:00 Lr IV 11/10/22 02:41 999 mls/hr .Q8H PRN Infusion L&D Protocol Protocol Oxytocin 30 units in 500 mls @ 9 mls/hr 11/08/22 03:23 11/08/22 07:00 Pitocin IV 11/10/22 03:22 0.54 units/hr .Q24H PRN 9 mls/hr Labor Induction/Augmentation Titration Protocol 0.54 UNITS/HR Past Medical History Medical History (Updated 11/08/22 @ 03:29 by Caty Lombardi MD, FACOG) Depression with anxiety Encounter for annual routine gynecological examination Exertional asthma (03/13/12) Gestational hypertension History of kidney stones Neutropenia Thrombocytopenia UTI (urinary tract infection) Varicella vaccine Past Family History Family History Grandmother (Maternal) Diabetes Hypertension Grandfather (Maternal) Hypertension Mother Depression Endometriosis Denies family history of Ovarian cancer Breast cancer Colorectal cancer Past Surgical History Surgical History No pertinent past surgical history Social History Smoking Status: Never smoker Do You Dip or Chew Tobacco: No Hx Alcohol Use: No Hx Substance Use: No Review of Systems Constitutional: as per Subjective / HPI Physical Exam Vital Signs Last Vital Signs Temp 36.5 C 11/08/22 07:01 Pulse 63 11/08/22 07:38 Resp 18 11/08/22 07:01 BP 137/86 11/08/22 07:30 Pulse Ox 98 11/08/22 07:38 Constitutional WD/WN, vitals as above Respiratory normal respiratory effort, lungs clear to auscultation Cardiovascular Rate/Rhythm: regular rate and regular rhythm Psychiatric A+Ox3, euthymic affect Genitourinary Manual OB Exam: + cervical dilation (nursing exam /-2 post, med) + 1 cm OB Exam Monitor Tracing: + external FHT monitor used, + external uterine monitor used (irreg), + category I and + normal FHT variability Testing Laboratory Results 11/07/22 22:46 11/08/22 06:16
--- NOTE | 2022-11-08 08:45 | Labor Progress Brief Note ---
Date of Service November 08, 2022 Subjective now comfortable with epidural Assessment & Plan (1) Gestational hypertension: (2) Encounter for induction of labor: Plan good cx change. fhts categ 2, since arom, but now appears categ 1, early decels. c/w pit. Admission and Anticipated Discharge Date Admission Date: November 08, 2022 Physical Exam Constitutional: WD/WN, vitals as above Genitourinary: Manual OB Exam: + cervical dilation 5 cm, + cervical effacement (75%), + station -1 and + amniotic fluid (AROM) clear OB Exam Monitor Tracing: + external FHT monitor used, + external uterine monitor used, + category II (variables) and + normal FHT variability Results & Data Vital Signs (Past 12 Hours) Vital Signs Temp Pulse Resp BP Pulse Ox 11/08/22 07:05 97.7 F 18 11/07/22 23:05 20 11/08/22 08:33 63 93 11/08/22 08:28 67 100 11/08/22 08:27 80 100/59 L 11/08/22 08:23 70 98 11/08/22 08:22 63 114/67 11/08/22 08:20 69 107/71 11/08/22 08:18 62 109/72 100 11/08/22 08:16 71 109/67 11/08/22 08:14 62 118/77 11/08/22 08:13 66 97 11/08/22 08:12 72 83/53 L 11/08/22 08:07 18 11/08/22 08:07 18 11/08/22 08:10 64 16 104/70 11/08/22 08:08 69 109/71 99 11/08/22 08:06 68 110/72 11/08/22 08:04 69 102/58 L 11/08/22 08:03 61 98 11/08/22 08:00 81 118/74 11/08/22 07:58 82 99 11/08/22 07:53 69 99 11/08/22 07:48 62 99 11/08/22 07:43 64 99 11/08/22 07:38 63 98 11/08/22 07:33 60 99 11/08/22 07:30 59 L 137/86 11/08/22 07:28 62 100 11/08/22 07:23 85 98 11/08/22 07:01 97.7 F 62 18 127/85 11/08/22 06:30 65 114/65 11/08/22 06:02 59 L 109/59 L 11/08/22 05:30 63 118/72 11/08/22 05:00 86 110/74 11/08/22 04:45 63 129/84 11/08/22 04:30 68 127/77 11/08/22 04:16 82 126/94 11/08/22 04:00 75 168/70 H 11/08/22 03:46 68 137/100 11/08/22 03:31 72 143/99 H 11/08/22 03:15 69 125/89 11/08/22 03:00 98.4 F 82 16 127/83 11/08/22 02:41 82 158/98 H 11/08/22 02:37 90 159/111 H 11/08/22 00:07 78 140/92 11/07/22 23:52 100 H 145/95 H 11/07/22 23:41 83 135/81 11/07/22 23:31 81 132/100 11/07/22 23:21 111 H 124/94 11/07/22 23:12 93 H 137/89 11/07/22 22:50 115 H 128/77 11/07/22 22:36 106 H 145/88 H Coding Level of Care Code None Diagnoses Gestational hypertension O13.9 Encounter for induction of labor Z34.90
--- NOTE | 2022-11-08 11:24 | Delivery Summary ---
Vaginal Delivery Summary Date of Service November 08, 2022 Vaginal Delivery Summary and 2nd Degree LAC The patient dilated to complete and pushed to deliver a viable male Apgars 7 and 8 via over 2nd degree perineal laceration. Mouth and nose bulb suctioned at perineum. Loose nuchal x 1 reduced. Shoulders and body delivered with ease. Infant was vigorous and crying at at first. Cord clamped at 30 seconds of life and to maternal abdomen where the cord was then doubly clamped and cut. to radiant warmer for drying and attention. Placenta delivered spontaneously and intact, three-vessel cord. Hemostasis achieved with dilute pitocin and uterine massage. Laceration repaired in routine fashion with 3-0 vicryl. Cervix and sulci intact. EBL 300 cc. Mother and baby stable in recovery. [facility] [place] Charge Delivery Type Details: and 2nd Degree LAC
[2022-11-08] MEDS ORDERED: DIPHTHERIA/TETANUS/PERTUSSIS Vaccine (Tdap, Age 7+yrs) 0.5mL SYR/VL IM ONE (11:43)
[2022-11-08] MEDS ORDERED: HYDROCORTISONE ACETATE 25 MG SUPP PR PRN (11:43)
[2022-11-08] MEDS ORDERED: BENZOCAINE 20% SPRY 85 APPLN/85 GM CAN EXT PRN (11:43)
[2022-11-08] MEDS ORDERED: bisacodyL 10 MG SUPP PR PRN (11:43)
[2022-11-08] MEDS ORDERED: oxyCODONE/ACETAMINOPHEN 5mg/325mg TAB PO PRN (11:43)
[2022-11-08] MEDS: OXYTOCIN 20 UNITS in LACTATED RINGER'S 1,000 ML IV SCH ×2 (12:08→23:12)
--- NOTE | 2022-11-08 12:11 | Anesthesia Procedure Note ---
Date of Service November 08, 2022 Anesthesia Post Epidural Note Vital Signs Vital Signs: Temp Pulse Resp BP Pulse Ox 36.5 C 73 16 111/65 100 11/08/22 11:20 11/08/22 11:55 11/08/22 11:50 11/08/22 11:55 11/08/22 11:13 Pain Intensity Abdomen: Pain Intensity: 6 Notes Mental Status: alert / awake / arousable and participated in evaluation Nausea / Vomiting: adequately controlled Pain: adequately controlled Airway Patency, RR, SpO2: stable & adequate BP & HR: stable & adequate Hydration State: stable & adequate Neuraxial Anesthesia: was administered and sensory block is resolving Anesthetic Complications: no major complications apparent and Pt Satisfied with anesthetic care Epidural: Removed without complications and With tip intact
[2022-11-08] MEDS ORDERED: CALCIUM CARBONATE 500 MG CHEWABLE TAB PO PRN (14:00)
[2022-11-08] MEDS ORDERED: FLUoxetine HCL 10 MG CAP PO SCH (21:00)
[2022-11-08] MEDS: DOCUSATE SODIUM 100 MG CAP PO SCH (22:39)
[2022-11-09] MEDS: IBUPROFEN 600 MG TAB PO PRN ×2 (00:16→06:09)
[2022-11-09 06:09] LABS: Hematocrit (blood only) 26.1 % (37.0-47.0); Hemoglobin 8.1 g/dl (12.0-16.0)
--- NOTE | 2022-11-09 06:29 | Obstetrical Progress Note ---
Date of Service November 09, 2022 Assessment & Plan (1) (normal spontaneous vaginal delivery): Plan: encourage ambulation pain control plan for dc today Admission and Anticipated Discharge Date Admission Date: November 08, 2022 Supervising Physician Co-Signing Physician Notes Resident Physician Supervision Note: I was present with Dr. Menon during the history and exam. I discussed the case with the resident and agree with the findings and plan as documented in the note. Any exceptions or clarifications are listed here: stable, doing well. eating, voiding, ambulating. bottle and breast feeding. af vss cor rrr, lungs ctab, abd soft ff 2 down nt ext nt calves. ppd #1 s/p , gest htn. bps have looked good. ready to go home. instructions reviewed. f/u 6wks pp check. Documented By: Caty Lombardi MD, FACOG Subjective 27 yo post day 1 s/p Ambulation: ambulating normally Voiding: no voiding problems Passing Gas:: Yes Diet Tolerance:: regular diet Lochia:: Small Feeding Type:: breast feeding Current Pain Level: minimal Comfortable this AM. minimal pain in the area of lac. Denies MARRUFO, CP, SOB, N/V/D, LE swelling. Review of Systems Review of Systems: reviewed, per hpi Physical Exam Physical Exam: General: patient resting comfortably, NAD, non-toxic in appearance, AA&O x 4, answers questions appropriately. Skin: warm, dry, intact HEENT: NC/AT, anicteric sclera, conjunctiva without injection, moist mucus membranes. Heart: +S1/S2, regular, no m/r/g Lungs: equal air entry bilaterally, no rales/rhonchi/wheezes Abd: +BS, soft, NT/ND, uterine fundus firm at umbilicus Ext: warm, no clubbing/cyanosis or edema, Kenia's neg Neuro: nonfocal, patient AA&O x 4, speech intact, no facial droop, moving all extremities on command. Results & Data Vital Signs (Past 12 Hours) Vital Signs Temp Pulse Resp BP Pulse Ox O2 Del Method 11/09/22 04:00 37 C 64 16 107/67 96 Room Air 11/08/22 23:25 37.1 C 62 18 116/72 99 Room Air 11/08/22 19:35 37 C 72 18 129/85 98 Room Air Laboratory Results 11/09/22 11/08/22 Range/Units 05:46 06:16 Hgb 8.1 L (12.0-16.0) g/dl Hct 26.1 L (37.0-47.0) % Sodium 136 (136-145) mmol/L Potassium 3.9 (3.5-5.1) mmol/L Chloride 105 (98-107) mmol/L Carbon Dioxide 22 (21-32) mmol/L Anion Gap 9 (3-11) BUN 14 (6-23) mg/dl Creatinine 0.93 (0.6-1.2) mg/dl Est Cr Clr Drug Dosing 96.3 ml/min Est GFR ( Amer) 99.0 ml/min Est GFR (Non-Af Amer) 85.4 ml/min BUN/Creatinine Ratio 15.1 (10-20) Glucose 85 (70-99(Fasting)) mg/dl Calcium 8.8 (8.6-10.3) mg/dl Total Bilirubin 0.4 (0.2-1.0) mg/dl Direct Bilirubin 0.1 (0-0.2) mg/dl AST 15 (13-39) U/L ALT 9 (7-52) U/L Alkaline Phosphatase 160 H (34-104) U/L Total Protein 6.5 (6.0-8.3) gm/dl Albumin 3.3 L (3.4-5.0) gm/dl Globulin 3.2 (2.5-4.0) gm/dl Albumin/Globulin Ratio 1.0 (0.9-2) Resident Activity Tracking Resident Involvement: Resident Care Provided Care Provided: Adult Hospital Medicine
[2022-11-09] MEDS ORDERED: PRENATAL VITAMIN 1 TAB PO SCH (08:00)
[2022-11-09] MEDS: DOCUSATE SODIUM 100 MG CAP PO SCH (08:08)
[2022-11-09] MEDS ORDERED: NON-FORMULARY MEDICATION (Prenat.Vits,Cal,Min-Iron-Folic tablet) PO SCH (09:00)
== END 2022-11-09 15:45 | disposition home or self-care (01) | DRG 807 ==
LOC: OPB 22:11 → 4S1 22:12 → 4E2 11-08 14:08